=== PATIENT | male | born 1935 | race Caucasian/White ===

== ENCOUNTER → 2020-12-15 | Outpatient (CLI) | payer MEDICARE, BC | LOC: RAD 12:15 | DX: R06.02 Shortness of breath (principal); R09.89 Other specified symptoms and signs involving the circulatory and respiratory systems; R60.0 Localized edema | CPT/HCPCS: 71046 ==

== ENCOUNTER → 2020-12-24 | Outpatient (CLI) | payer MEDICARE, BC | LOC: ECHO 09:36 | DX: I11.9 Hypertensive heart disease without heart failure (principal); I25.10 Atherosclerotic heart disease of native coronary artery without angina pectoris; I48.91 Unspecified atrial fibrillation; R60.0 Localized edema; R01.1 Cardiac murmur, unspecified; I08.3 Combined rheumatic disorders of mitral, aortic and tricuspid valves; I27.20 Pulmonary hypertension, unspecified | CPT/HCPCS: ECHO; 93306 ==

== ENCOUNTER 2021-09-08 08:12 | Emergency (ER) | payer MEDICARE, BC | END 2021-09-08 10:43 | disposition home or self-care (01) | LOC: ER1 08:12 | DX: S91.311A Laceration without foreign body, right foot, initial encounter (principal); Z23 Encounter for immunization; I10 Essential (primary) hypertension; E11.9 Type 2 diabetes mellitus without complications; W20.8XXA Other cause of strike by thrown, projected or falling object, initial encounter; Y92.009 Unspecified place in unspecified non-institutional (private) residence as the place of occurrence of the external cause | CPT/HCPCS: 12002; 73630; 90471; 90715; 99283 ==